=== PATIENT | male | born 1940 | race Caucasian/White ===

== ENCOUNTER → 2018-09-16 | Outpatient (CLI) | payer MEDICARE, OTHER ==
--- NOTE | 2018-09-16 14:31 | 2DMMODE ---
[place] [address] 2 D/M-MODE ECHOCARDIOGRAM Name: DIAMOND PALAFOX Room: [facility]#: [id number] Admission: 09/16/18 Attend Phys: Gera Li, Discharge: Date of : 42 Date of Service: 09/16/18 1431 Report #: [id number] THIS REPORT FOR: //name// APPROVED REPORT Study performed: 09/16/2018 12:05:07 EXAM: Comprehensive 2D, Doppler, and color-flow Echocardiogram Patient Location: Out-Patient BSA: 1.80 HR: 57 bpm BP: 189/95 mmHg Other Information Study Quality: Good Indications Dyspnea 2D Dimensions IVSd: 12.10 (7-11mm) LVOT Diam: 20.91 (18-24mm) LVDd: 38.68 mm PWd: 11.32 (7-11mm) Ascending Ao: 34.10 (22-36mm) LVDs: 18.95 (25-40mm) Aortic Root: 30.30 mm Volumes Left Atrial Volume (Systole) LA ESV Index: 29.60 mL/m2 Aortic Valve AoV Peak Rashel.: 1.69 m/s AO Peak Gr.: 11.38 mmHg LVOT Max P.43 mmHg AO Mean Gr.: 6.26 mmHg LVOT Mean P.39 mmHg LVOT Max V: 1.05 m/s AO V2 VTI: 35.63 cm LVOT Mean V: 0.72 m/s DANIEL (VTI): 2.32 cm2 LVOT V1 VTI: 24.03 cm Mitral Valve E/A Ratio: 0.59 MV Decel. Time: 298.36 ms MV E Max Rashel.: 0.50 m/s MV PHT: 86.52 ms MVA (PHT): 2.54 [place]2 [place] [address] 2 D/M-MODE ECHOCARDIOGRAM Name: DIAMOND PALAFOX Room: [facility]#: [id number] Admission: 09/16/18 Attend Phys: Gera Li, Discharge: Date of : 42 Date of Service: 09/16/18 1431 Report #: [id number] TDI E/Lateral E': 5.56 E/Medial E': 8.33 Medial E' Rashel.: 0.06 m/s Lateral E' Rashel.: 0.09 m/s Pulmonary Valve PV Peak Rashel.: 1.27 m/s PV Peak Gr.: 6.46 mmHg Tricuspid Valve RAP Estimate: 5.00 mmHg TR Peak Gr.: 17.68 mmHg RVSP: 22.68 mmHg PA Pressure: 22.68 mmHg Left Ventricle The left ventricle is normal size. There is normal LV segmental wall motion. There is normal left ventricular wall thickness. Left ventricular systolic function is normal. The left ventricular ejection fraction is within the normal range. LVEF is 60-65%. Grade I - abnormal relaxation pattern. Right Ventricle The right ventricle is normal size. The right ventricular systolic function is normal. Atria Left atrium is mildly dilated. The right atrium size is normal. Aortic Valve Aortic valve is mildly calcified. No aortic regurgitation is present. There is no aortic valvular stenosis. Mitral Valve Mild mitral annular calcification. There is no mitral valve regurgitation noted. No evidence of mitral valve stenosis. Tricuspid Valve The tricuspid valve is normal in structure. Trace to mild tricuspid regurgitation. Pulmonic Valve The pulmonary valve is normal in structure. Mild pulmonic [place]itation[place] [address] 2 D/M-MODE ECHOCARDIOGRAM Name: DIAMOND PALAFOX Room: [facility]#: [id number] Admission: 09/16/18 Attend Phys: Gera Li, Discharge: Date of : 42 Date of Service: 09/16/18 1431 Report #: [id number] The aortic root is normal in size. IVC is normal in size and collapses >50% with inspiration. Pericardium There is no pericardial effusion. <Conclusion> The left ventricle is normal size. There is normal left ventricular wall thickness. Left ventricular systolic function is normal. The left ventricular ejection fraction is within the normal range. LVEF is 60-65%. Grade I - abnormal relaxation pattern. The right ventricle is normal size. Left atrium is mildly dilated. Aortic valve is mildly calcified. No aortic regurgitation is present. There is no aortic valvular stenosis. Mild mitral annular calcification. There is no mitral valve regurgitation noted. No evidence of mitral valve stenosis. The tricuspid valve is normal in structure. Trace to mild tricuspid regurgitation. IVC is normal in size and collapses >50% with inspiration. There is no pericardial effusion. There is normal LV segmental wall motion. <ELECTRONICALLY SIGNED> By: Sharad Newell MD, FACC 09/16/18 1431 1431 1431 Sharad Newell MD, FACC /INF
--- NOTE | 2018-09-16 17:41 | CARDNUC ---
[place] [address] CARDIAC NUCLEAR IMAGING REPORT Name: DIAMOND PLAAFOX Room: [facility]#: [id number] Admission: 09/16/18 Attend Phys: Gera Li, Discharge: Date of : 42 Date of Service: 09/16/18 1741 Report #: [id number] THIS REPORT FOR: //name// APPROVED REPORT Study performed: 09/16/2018 11:59:54 Exam: Nuclear Stress Test Indication: Dyspnea Patient Location: Out-Patient Stress Tech: Judy Weller Stress Nurse: Lyubov Salas RN Ht: 5 ft 6 in Wt: 159 lbs BSA: 1.81 m2 BMI: 25.66 Medical History Medical History: COPD, Fatigue, Hyperlipidemia, Smoking, SOB, Weakness. Medications: Atorvastatin Allergies: No known drug allergies Cardiac Risk Factors: Age, HTN, Hyperlipidemia, SOB, Past Smoker, COPD/Emphysema. Previous Cardiac Procedures: None Pretest Chest Pain Characteristics: No chest pain Exercise History: Indeterminate Physical Disabilities: Legs, Back Meds Held (24 hrs): None Stress Test Details Stress Test: Pharmacologic stress testing performed using 0.4 mg of regadenoson per 5 mL given IV over 10 seconds. Reason for pharmacologic stress test: Back and Leg pain.. HR Resting HR: 57 bpm Max Heart Rate (APMHR): 143 bpm Max HR Achieved: 92 bpm Target HR (85% APMHR): 121 bpm % of APMHR: 64 Recovery HR: 79 bpm BP Resting BP: 203/96 mmHg Max BP: 188/[place] [address] CARDIAC NUCLEAR IMAGING REPORT Name: DIAMOND PALAFOX Room: [facility]#: [id number] Admission: 09/16/18 Attend Phys: Gera Li, Discharge: Date of : 42 Date of Service: 09/16/18 1741 Report #: [id number] Resting ECG: sinus rhythm with right bundle branch block and left ventricular hypertrophy with repolarization abnormality. Stress ECG: sinus rhythm with right bundle branch block and left ventricular hypertrophy with repolarization abnormality. ST Change: None Arrhythmia: None Recovery ECG: sinus rhythm with right bundle branch block and left ventricular hypertrophy with repolarization abnormality. Recovery ST Change: None Recovery Arrhythmia: None Clinical Reason for Termination: Completed protocol Stress Symptoms: Nausea, Fatigue, Dyspnea, Arms cool. Exercise duration: 0 min 00 sec Exercise capacity: 1.00 METs The patient tolerated Lexiscan infusion without significant symptoms. Nurse Comments 78 year old male presented with recent increase of SOA and weakness. Patient tolerated sitting Lexiscan well. Recovery unremarkable with PO caffeine, effective. Patient escorted to ECHO then to Nuclear Medicine for images. Patient was stable with no complaints at that time. Stress ECG Conclusion The baseline EKG showed sinus rhythm with right bundle-branch block and left ventricular hypertrophy with moderate repolarization abnormalities. EKGs obtained during and post Lexiscan stress showed no significant ST or T wave changes when compared to baseline. There were no stress-induced arrhythmias. NM EXAM: Myocardial Perfusion REST/STRESS Imaging Protocol: Rest Tc-99m/Stress Tc-99m 1 day Resting Data Rest SPECT myocardial perfusion imaging was performed in supine position 30 minutes following the intravenous injection of 11.0 mCi of Tc-99m Sestamibi. Time of rest injection: 09:50 The images were gated to evaluate regional wall motion and calculate left ventricular ejection fraction. Administration Route: IV Administration Site: [place] [address] CARDIAC NUCLEAR IMAGING REPORT Name: DIAMOND PALAFOX Room: [facility]#: [id number] Admission: 09/16/18 Attend Phys: Grea Li, Discharge: Date of : 42 Date of Service: 09/16/18 1741 Report #: [id number] Pharmacologic Stress Pharmacologic stress test was performed by injecting Regadenoson 0.4 mg IV push followed by the intravenous injection of 36.0 mCi of Tc-99m Sestamibi. Time of stress injection: 12:00 Administration Route: IV Administration Site: Right Heart Rate at time of stress injection: 92 bpm. Gated Stress SPECT was performed 40 minutes after stress injection. The images were gated to evaluate regional wall motion and calculate left ventricular ejection fraction. Prone imaging was performed. Study Quality Study: Good Artifact: No artifact Study Data At rest, the left ventricular ejection fraction was 67%.. Post stress, the left ventricular ejection was 71%.. TID = 0.89. Perfusion Normal left ventricular perfusion. Wall Motion Normal left ventricular wall motion. Nuclear Conclusion ECG Findings: non-diagnostic Clinical Findings: negative for ischemia Nuclear Findings: negative for ischemia Exercise Capacity: not assessed Left Ventricular Function: normal Risk Study: low Myocardial perfusion images show no defect to suggest infarct or ischemia. Left ventricular systolic function appears normal on gated studies. This is a low risk study. <Conclusion> The baseline EKG showed sinus rhythm with right bundle-branch block and left ventricular hypertrophy with moderate repolarization abnormalities. EKGs obtained during and [place] [address] CARDIAC NUCLEAR IMAGING REPORT Name: DIAMOND PALAFOX Room: [facility]#: [id number] Admission: 09/16/18 Attend Phys: Gera Li, Discharge: Date of : 42 Date of Service: 09/16/18 1741 Report #: [id number] or T wave changes when compared to baseline. There were no stress-induced arrhythmias. <ELECTRONICALLY SIGNED> By: Gera Li MD, FACC 09/16/18 1741 [id number] Gera Li MD, FAC /INF
== END ==
LOC: M.NUC 08-26 14:55 → M.CRD 09-02 15:00 → M.NUC 08:00 → M.CRD 09:00 → M.NUC 09:29
DX: I08.8 Other rheumatic multiple valve diseases (principal); E78.2 Mixed hyperlipidemia; I45.10 Unspecified right bundle-branch block; J44.9 Chronic obstructive pulmonary disease, unspecified; F17.210 Nicotine dependence, cigarettes, uncomplicated